=== PATIENT | female | born 1945 | race Caucasian/White ===

== ENCOUNTER 2020-11-20 07:48 | Day surgery (SDC) | payer OTHER ==
[2020-11-19 15:08] VITALS: BMI 33.3
[2020-11-20 08:08] VITALS: TEMP 98.1
[2020-11-20] MEDS ORDERED: LIDOCAINE HCL/PF 2% SDV 5ML VIAL ONE (08:49)
[2020-11-20] MEDS ORDERED: PROPOFOL 20 ML ONE ×3 (08:49)
[2020-11-20 10:03] VITALS: BP 105/51; PULSE 81
== END 2020-11-20 10:05 | disposition home or self-care (01) ==
LOC: FASU-ENDO 07:48
PROVIDERS: ATTEND Internal Medicine Gastroenterology
PROC: 0DB68ZX Excision of Stomach, Via Natural or Artificial Opening Endoscopic, Diagnostic (ICD-10-PCS; 2020-11-20)
PROC: 0DB48ZX Excision of Esophagogastric Junction, Via Natural or Artificial Opening Endoscopic, Diagnostic (ICD-10-PCS; 2020-11-20)
PROC: 0DB98ZX Excision of Duodenum, Via Natural or Artificial Opening Endoscopic, Diagnostic (ICD-10-PCS; principal; 2020-11-20 09:12)
DX: R12 Heartburn (principal); K44.9 Diaphragmatic hernia without obstruction or gangrene; K25.9 Gastric ulcer, unspecified as acute or chronic, without hemorrhage or perforation
CPT/HCPCS: 88305-TC; 88342-TC

== ENCOUNTER 2021-01-22 09:25 | Day surgery (SDC) | payer OTHER ==
[2021-01-14 14:02] VITALS: BMI 33.9
[2021-01-22 10:32] VITALS: TEMP 97.8
[2021-01-22 12:15] VITALS: BP 133/75; PULSE 69
== END 2021-01-22 12:00 | disposition home or self-care (01) ==
LOC: FASU-ENDO 09:25
PROVIDERS: ATTEND Internal Medicine Gastroenterology
PROC: 0DB68ZX Excision of Stomach, Via Natural or Artificial Opening Endoscopic, Diagnostic (ICD-10-PCS; principal; 2021-01-22 11:06)
DX: K29.50 Unspecified chronic gastritis without bleeding (principal); K44.9 Diaphragmatic hernia without obstruction or gangrene; R10.13 Epigastric pain; Z87.11 Personal history of peptic ulcer disease
CPT/HCPCS: 88305-TC; 88342-TC